=== PATIENT | female | born 1985 | race Caucasian/White ===

== ENCOUNTER → 2016-12-19 | Outpatient (CLI) | payer OTHER ==
--- NOTE | 2016-12-19 15:51 | RADIOLOGY REPORT (SQ) ---
EXAM DESCRIPTION: HYSTEROSALPINGOGRAM; HYSTERO CATH/INJECTION COMPLETED DATE/TIME: 12/19/2016 1:46 pm REASON FOR STUDY: INFERTILITY (N97.9) COMPARISON: None. PROCEDURE: PRE-PROCEDURE: Procedure was explained to the patient. She was told to expect cramping du ring the procedure, and possible spotting post procedure. PROCEDURE: The cervix was prepped in sterile fashion. Under direct visual inspection, the cervix was cannulated with the hysterosalpingogram catheter and contrast injected. TECHNIQUE: Temporal fluoroscopic images acquired during the procedure stored to PACS. FLUOROSCOPY TIME: Less than 1 second 11 images saved to PACS. LIMITATIONS: None. FINDINGS: Endocervical and endometrial canals are normal. There is flow out the right fallopian tube which is normal in caliber. However, there is no free spi llage of contrast out the right fallopian tube. There is a pocket of contrast which appears between the fallopian tube and ovary. There is flow out the left fallopian tube which is normal in caliber. However, there is very little free spillage of contrast out the left fallopian tube. The majority of contrast pools between the tu be and left ovary. Mild SI joint sclerosis. IMPRESSION: Although the fallopian tubes are patent, there is evidence of pelvic adhesions between t he fallopian tubes and ovaries bilaterally. COMMENT: Quality ID [id number]: Final reports for procedures using fluoroscopy that document radiation exp osure indices, or exposure time and number of fluorographic images (if radiation exposure indices are not available) TECHNICAL DOCUMENTATION: JOB ID: [id number] [employer]- All Rights Reserved
== END ==
LOC: RAD 12:30
PROVIDERS: ATTEND Obstetrics & Gynecology Gynecology
DX: N97.9 Female infertility, unspecified (principal)
CPT/HCPCS: 58340; 74740

== ENCOUNTER → 2017-02-20 | Outpatient (CLI) | payer OTHER ==
--- NOTE | 2017-02-20 15:51 | RADIOLOGY REPORT (SQ) ---
EXAM DESCRIPTION: CT SOFT TISSUE NECK WITH COMPLETED DATE/TIME: 02/20/2017 2:12 pm REASON FOR STUDY: SIALOLITHIASIS K11.5 SIALOLITHIASIS COMPARISON: None. TECHNIQUE: Post IV contrasted scanning from skull base through lung apices with review of bone, soft tissue and lung windows. Reconstructed coronal and sagittal MPR images reviewed. All images stored on PACS. All CT scanners at this facility use dose modulation, iterative reconstruction, and/or weight based d osing when appropriate to reduce radiation dose to as low as reasonably achievable (ALARA). [facility]: Dose Right [facility]: CareDose [facility]: Dose Right [facility]: Teradose 4D [facility]: Notifixious CONTRAST TYPE AND DOSE: contrast/concentration: Isovue 370.00 mg/ml; Total Contrast Delivered: 75.0 ml; Total Saline Delivered: 55.0 ml RENAL FUNCTION: None required. The patient is less than 50 years old. RADIATION DOSE: 20 mGy . LIMITATIONS: Mild artifact from metallic dental work. FINDINGS: SKULL BASE: Intact. MAJOR SALIVARY GLANDS: No salivary stones along the right or left Lyman's duct, sublingual ducts, o r along the right or left sublingual glands. The bilateral parotid glands, bilateral submandibular glands, and left sublingual gland are unremarka ble. There is subtle asymmetric enlargement of the right sublingual gland on axial images 40 through 44. Fullness along the right sublingual gland is also seen on coronal images 25-32. Right submandibular gland inflammation may be present. Tumor could not entirely be excluded. Consider MRI of the floor of mouth without and with contrast for further characterization. LYMPHADENOPATHY: No adenopathy. MUCOSAL MASSES OR ASYMMETRY: No mucosal masses or asymmetry. LARYNX/CORDS: No abnormal findings. VASCULAR STRUCTURES: The major vessels are patent. LUNG APICES: Clear. BONES: Intact. THYROID: Normal size. No masses. PARANASAL SINUSES: Clear. OTHER: No other significant finding. IMPRESSION: Subtle diffuse enlargement of the right sublingual gland as compared to the left. No sa livary stones are identified. This could indicate sialadenitis. Tumor could not completely be exclu ded. Further evaluation with MRI of the floor of mouth without and with contrast could provide leandra r soft tissue resolution and help characterize findings in the right sublingual gland TECHNICAL DOCUMENTATION: JOB ID: [id number] Quality ID # [id number]: Final reports with documentation of one or more dose reduction techniques (e.g., Au tomated exposure control, adjustment of the mA and/or kV according to patient size, use of iterative reconstruction technique) 2010 [employer]- All Rights Reserved
== END ==
LOC: RAD 13:27
PROVIDERS: ATTEND Otolaryngology
DX: K11.5 Sialolithiasis (principal)
CPT/HCPCS: 70491

== ENCOUNTER → 2017-03-05 | Outpatient (CLI) | payer OTHER | LOC: RAD 17:31 | PROVIDERS: ATTEND Otolaryngology | DX: K11.5 Sialolithiasis (principal); Z53.09 Procedure and treatment not carried out because of other contraindication; Z33.1 Pregnant state, incidental ==